=== PATIENT | female | born 1945 | race Caucasian/White ===

== ENCOUNTER 2016-11-16 17:11 | Emergency (ER) | payer BC, MEDICARE ==
[2016-11-16 19:15] LABS: BASO % 0.9 % (0-6); EOS % 2.3 % (0-6); GRAN % 59.8 % (47-80); HEMOGLOBIN 9.8 gm/dl (11.6-16.0); LYMPH % 26.5 % (16-45); MEAN CORPUSCULAR HGB CONC 32.7 g/dl (32-36); MEAN PLATELET VOLUME 10.7 fl (7.4-10.4); MONO % 10.5 % (0-9); PLATELET COUNT 248 K/uL (130-400); RED BLOOD COUNT 3.49 M/uL (3.80-5.40); RED CELL DISTRIBUTION WIDTH 13.1 % (11.5-14.5); WHITE BLOOD COUNT W/O DIFF 7.1 K/uL (4.2-12.2)
--- NOTE | 2016-11-16 19:19 | Emergency Department Record ---
History of Present Illness - General Chief complaint: Fatigue and Weakness Stated complaint: EDEMA Time Seen by Provider: 11/16/16 18:12 Source: Patient, Family Mode of Arrival: Wheelchair Limitations: No limitations - History of Present Illness Initial comments: pt has been excessively weak and sleepy lately. pt is recovering from a stroke several months ago and has been living with her sister. she went to rehab and is improving but is still walking with a walker. she has l sided deficits. she denies any significant chanes in her meds though her neurontin was recently increased from 100mg bid to tid. she denies pain, fever. MD Complaint: Generalized weakness Onset/Timin -: Days(s) Location: Generalized Severity: Mild Consistency: Constant Improves with: None Worsens with: None Associated Symptoms: Loss of appetite, Other - Jami Coma Scale Eye Response: (4) Open spontaneously Motor Response: (6) Obeys commands Verbal Response: (5) Oriented Jami Total: 15 - Symptoms of Stroke Onset of Symptoms Date: 11/13/16 Symptom Onset Unknown: Yes Symptoms of stroke: Muscle Weakness, Unable to Walk - Related Data Home Medications Medication Instructions Recorded Confirmed Last Taken Acetaminophen [Tylenol] 325 mg PO QD tab 11/09/16 11/16/16 11/16/16 Amlodipine Besylate [Norvasc] 2.5 mg PO QD tab 11/09/16 11/16/16 11/16/16 Atorvastatin Calcium [Lipitor] 80 mg PO QHS tab 11/09/16 11/16/16 11/16/16 Bumetanide 0.5 mg PO ASDIR #30 11/09/16 11/16/16 11/16/16 Cyanocobalamin (Vitamin B-12) 1,000 mcg PO QD tab 11/09/16 11/16/16 11/16/16 [Vitamin B12] Docusate Sodium [Colace] 100 mg PO QD cap 11/09/16 11/16/16 11/16/16 Gabapentin 100 mg PO TID #90 11/09/16 11/16/16 11/16/16 Glipizide [Glipizide Er] 10 mg PO DAILY #90 11/09/16 11/16/16 11/16/16 Glucosamine/D3/Boswellia Mehnaz 1 each PO TID tab 11/09/16 11/16/1617 [Glucosamine Complex Tablet] Ibuprofen [Motrin Ib] 200 mg PO QD tab 11/09/16 11/16/16 11/16/16 Insulin Glargine,Hum.rec.anlog 22 units SQ QAM #10 11/09/16 11/16/16 11/16/16 [Lantus] Menthol [Biofreeze] 89 ml TP ASDIR 11/09/16 11/16/16 11/16/16 Mirtazapine [Remeron] 15 mg PO QHS tab.rapdis 11/09/16 11/16/16 11/16/16 Multivitamin [Multi-Vitamin Daily] 1 each PO QD tab 11/09/16 11/16/16 11/16/16 Naproxen Sodium [Aleve] 220 mg PO ASDIR cap 11/09/16 11/16/16 11/16/16 Polyethylene Glycol 3350 [Miralax] 17 gm PO DAILY packet 11/09/16 11/16/16 Sennosides/Docusate Sodium 1 each PO QD tab 11/09/16 11/16/16 11/16/16 [Senna-Docusate Sodium Tablet] Ferrous Sulfate [Iron] 325 mg PO DAILY 11/16/16 11/16/16 11/16/16 Terazosin HCl 5 mg PO QHS 11/16/16 11/16/16 Unknown Allergies Allergy/AdvReac Type Severity Reaction Status Date / Time Penicillins Allergy Intermediate RASH Verified 11/16/16 17:53 Travel Screening - Travel/Exposure Within Last 30 Days Have you traveled within the last 30 days?: No Review of Systems Reviewed: No additional complaints except as noted below Constitutional: Reports: As per HPI, Weakness. Denies: Chills, Fever, Malaise, Night sweats, Weight change Eyes: Reports: As per HPI. Denies: Eye discharge, Eye pain, Photophobia, Vision change ENT: Reports: As per HPI. Denies: Congestion, Dental pain, Ear pain, Epistaxis , Hearing loss, Throat pain Respiratory: Reports: As per HPI. Denies: Cough, Dyspnea, Hemoptysis, Stridor, Wheezes Cardiovascular: Reports: As per HPI. Denies: Arrhythmia, Chest pain, Dyspnea on exertion, Edema, Murmurs, Orthopnea, Palpitations, Paroxysmal nocturnal dyspnea, Rheumatic Fever, Syncope Endocrine: Reports: As per HPI, Fatigue. Denies: Heat or cold intolerance, Polydipsia, Polyuria Gastrointestinal: Reports: As per HPI. Denies: Abdominal pain, Constipation, Diarrhea, Hematemesis, Hematochezia, Melena, Nausea, Vomiting Genitourinary: Reports: As per HPI. Denies: Abnormal menses, Discharge, Dyspareunia, Dysuria, Frequency, Hematuria, Incontinence, Retention, Urgency Musculoskeletal: Reports: As per HPI. Denies: Arthralgia, Back pain, Gout, Joint swelling, Myalgia, Neck pain Skin: Reports: As per HPI. Denies: Bruising, Change in color, Change in hair/ nails, Lesions, Pruritus, Rash Neurological: Reports: As per HPI, Weakness. Denies: Abnormal gait, Confusion, Headache, Numbness, Paresthesias, Seizure, Tingling, Tremors, Vertigo Psychiatric: Reports: As per HPI. Denies: Anxiety, Auditory hallucinations, Depression, Homicidal thoughts, Suicidal thoughts, Visual hallucinations Hematological/Lymphatic: Reports: As per HPI. Denies: Anemia, Blood Clots, Easy bleeding, Easy bruising, Swollen glands Past Medical History - SOCIAL HISTORY Smoking Status: Never smoker Alcohol Use: None Drug Use: None - RESPIRATORY Hx Respiratory Disorders: No - CARDIOVASCULAR Hx Cardio Disorders: Yes Hx Hypertension: Yes - NEURO Hx Neuro Disorders: Yes Hx CVA: Yes (April 2016) - GI Hx GI Disorders: No - Hx Genitourinary Disorders: No - ENDOCRINE Hx Endocrine Disorders: Yes Hx Diabetes: Yes - MUSCULOSKELETAL Hx Musculoskeletal Disorders: No - PSYCH Hx Psych Problems: No - HEMATOLOGY/ONCOLOGY Hx Hematology/Oncology Disorders: No Family Medical History Any Significant Family History?: Yes Hx Heart Disease: Father, Brother/Sister Course Vital Signs 11/16/16 17:43 Temperature 97.5 F L Pulse Rate 77 Respiratory 16 Rate Blood Pressure 164/71 Pulse Ox 97 - Reevaluation(s) Reevaluation #1: 11/16/16 20:[address] Medical Decision Making - Management Options MDM Management: Additional Work-up Planned (e.g. ADM/Transfer/OP Study) - Data Complexity MDM Data: Labs Ordered and/or Reviewed, X-Ray Ordered and/or Reviewed - Lab Data Result diagrams: 11/16/16 19:00 11/16/16 19:00 Disposition Disposition: Discharge Clinical Impression: Weakness Anemia Qualifiers: Anemia type: other cause Other causes of anemia: other cause, not classified Qualified Code(s): D64.89 - Other specified anemias Disposition: Home, Self-Care Condition: (1) Good Instructions: Fatigue (ED), Iron Rich Diet (ED), Iron Deficiency Anemia (ED), Anemia (ED) Additional Instructions: follow up with family doctor. return sooner if worse. push fluids. decrease neurontin. Forms: Patient Portal Access
[2016-11-16 19:35] LABS: INFLUENZA A NEGATIVE (NEGATIVE); INFLUENZA B NEGATIVE (NEGATIVE)
[2016-11-16 19:47] LABS: T3 UPTAKE 35.8 % (23.5-40.5)
[2016-11-16 19:57] LABS: ALB/GLOB RATIO 1.5 (1.1-1.8); ALBUMIN 3.9 gm/dL (3.5-5.0); ANION GAP 8.5 (7-16); BILIRUBIN,TOTAL 0.24 mg/dL (0.2-1.3); CARBON DIOXIDE 20.5 mmol/L (22-30); TOTAL PROTEIN 6.5 gm/dL (6.3-8.2)
[2016-11-16 20:14] LABS: THYROXINE (T4) 7.59 ug/dl (5.53-11.0)
[2016-11-16 20:28] LABS: THYROID STIMULATING HORMONE 1.71 uIU/ml (0.465-4.68)
[2016-11-16 20:37] LABS: URINE APPEARANCE CLEAR; URINE BILIRUBIN NEGATIVE (NEGATIVE); URINE BLOOD NEGATIVE (NEGATIVE); URINE COLOR YELLOW; URINE GLUCOSE (UA) NEGATIVE (NEGATIVE); URINE KETONE NEGATIVE (NEGATIVE); URINE LEUKOCYTE ESTERASE NEGATIVE (NEGATIVE); URINE NITRITE NEGATIVE (NEGATIVE); URINE PROTEIN NEGATIVE (NEGATIVE); URINE UROBILINOGEN 0.2 E.U./dL (0.20 - 1.00)
--- NOTE | 2016-11-19 03:52 | Emergency Department Record ---
History of Present Illness - General Chief complaint: Fatigue and Weakness Stated complaint: EDEMA Time Seen by Provider: 11/16/16 18:12 Source: Patient, Family Mode of Arrival: Wheelchair Limitations: No limitations - History of Present Illness Complaint: Generalized weakness Onset/Timin -: Days(s) Location: Generalized Severity: Mild Consistency: Constant Improves with: None Worsens with: None Associated Symptoms: Loss of appetite, Other - Jami Coma Scale Eye Response: (4) Open spontaneously Motor Response: (6) Obeys commands Verbal Response: (5) Oriented Jami Total: 15 - Symptoms of Stroke Onset of Symptoms Date: 11/13/16 Symptom Onset Unknown: Yes Symptoms of stroke: Muscle Weakness, Unable to Walk - Related Data Home Medications Medication Instructions Recorded Confirmed Last Taken Acetaminophen [Tylenol] 325 mg PO QD tab 11/09/16 11/16/16 11/16/16 Amlodipine Besylate [Norvasc] 2.5 mg PO QD tab 11/09/16 11/16/16 11/16/16 Atorvastatin Calcium [Lipitor] 80 mg PO QHS tab 11/09/16 11/16/16 11/16/16 Bumetanide 0.5 mg PO ASDIR #30 11/09/16 11/16/16 11/16/16 Cyanocobalamin (Vitamin B-12) 1,000 mcg PO QD tab 11/09/16 11/16/16 11/16/16 [Vitamin B12] Docusate Sodium [Colace] 100 mg PO QD cap 11/09/16 11/16/16 11/16/16 Gabapentin 100 mg PO TID #90 11/09/16 11/16/16 11/16/16 Glipizide [Glipizide Er] 10 mg PO DAILY #90 11/09/16 11/16/16 11/16/16 Glucosamine/D3/Boswellia Mehnaz 1 each PO TID tab 11/09/16 11/16/16 11/16/16 [Glucosamine Complex Tablet] Ibuprofen [Motrin Ib] 200 mg PO QD tab 11/09/16 11/16/16 11/16/16 Insulin Glargine,Hum.rec.anlog 22 units SQ QAM #10 11/09/16 11/16/16 11/16/16 [Lantus] Menthol [Biofreeze] 89 ml TP ASDIR 11/09/16 11/16/16 11/16/16 Mirtazapine [Remeron] 15 mg PO QHS tab.rapdis 11/09/16 11/16/16 11/16/16 Multivitamin [Multi-Vitamin Daily] 1 each PO QD tab 11/09/16 11/16/16 11/16/16 Naproxen Sodium [Aleve] 220 mg PO ASDIR cap 11/09/16 11/16/16 11/16/16 Polyethylene Glycol 3350 [Miralax] 17 gm PO DAILY packet 11/09/16 11/16/16 Sennosides/Docusate Sodium 1 each PO QD tab 11/09/16 11/16/16 11/16/16 [Senna-Docusate Sodium Tablet] Ferrous Sulfate [Iron] 325 mg PO DAILY 11/16/16 11/16/16 11/16/16 Terazosin HCl 5 mg PO QHS 11/16/16 11/16/16 Unknown Allergies Allergy/AdvReac Type Severity Reaction Status Date / Time Penicillins Allergy Intermediate RASH Verified 11/16/16 17:53 Travel Screening - Travel/Exposure Within Last 30 Days Have you traveled within the last 30 days?: No Review of Systems Constitutional: Reports: As per HPI, Weakness. Denies: Chills, Fever, Malaise, Night sweats, Weight change Eyes: Reports: As per HPI. Denies: Eye discharge, Eye pain, Photophobia, Vision change ENT: Reports: As per HPI. Denies: Congestion, Dental pain, Ear pain, Epistaxis , Hearing loss, Throat pain Respiratory: Reports: As per HPI. Denies: Cough, Dyspnea, Hemoptysis, Stridor, Wheezes Cardiovascular: Reports: As per HPI. Denies: Arrhythmia, Chest pain, Dyspnea on exertion, Edema, Murmurs, Orthopnea, Palpitations, Paroxysmal nocturnal dyspnea, Rheumatic Fever, Syncope Endocrine: Reports: As per HPI, Fatigue. Denies: Heat or cold intolerance, Polydipsia, Polyuria Gastrointestinal: Reports: As per HPI. Denies: Abdominal pain, Constipation, Diarrhea, Hematemesis, Hematochezia, Melena, Nausea, Vomiting Genitourinary: Reports: As per HPI. Denies: Abnormal menses, Discharge, Dyspareunia, Dysuria, Frequency, Hematuria, Incontinence, Retention, Urgency Musculoskeletal: Reports: As per HPI. Denies: Arthralgia, Back pain, Gout, Joint swelling, Myalgia, Neck pain Skin: Reports: As per HPI. Denies: Bruising, Change in color, Change in hair/ nails, Lesions, Pruritus, Rash Neurological: Reports: As per HPI, Weakness. Denies: Abnormal gait, Confusion, Headache, Numbness, Paresthesias, Seizure, Tingling, Tremors, Vertigo Psychiatric: Reports: As per HPI. Denies: Anxiety, Auditory hallucinations, Depression, Homicidal thoughts, Suicidal thoughts, Visual hallucinations Hematological/Lymphatic: Reports: As per HPI. Denies: Anemia, Blood Clots, Easy bleeding, Easy bruising, Swollen glands Past Medical History - SOCIAL HISTORY Smoking Status: Never smoker Alcohol Use: None Drug Use: None - RESPIRATORY Hx Respiratory Disorders: No - CARDIOVASCULAR Hx Cardio Disorders: Yes Hx Hypertension: Yes - NEURO Hx Neuro Disorders: Yes Hx CVA: Yes (April 2016) - GI Hx GI Disorders: No - Hx Genitourinary Disorders: No - ENDOCRINE Hx Endocrine Disorders: Yes Hx Diabetes: Yes - MUSCULOSKELETAL Hx Musculoskeletal Disorders: No - PSYCH Hx Psych Problems: No - HEMATOLOGY/ONCOLOGY Hx Hematology/Oncology Disorders: No Family Medical History Any Significant Family History?: Yes Hx Heart Disease: Father, Brother/Sister Physical Exam - General General Appearance: Alert, Oriented x3, Cooperative, Mild distress Limitations: No limitations - Head Head exam: Normal inspection - Eye Eye exam: Normal appearance, PERRL, EOMI Pupils: Normal accommodation - ENT ENT exam: Normal exam, Mucous membranes moist, Normal external ear exam, Normal orophraynx Ear exam: Normal external inspection. negative: External canal tenderness Nasal Exam: Normal inspection. negative: Discharge, Sinus tenderness Mouth exam: Normal external inspection, Tongue normal Teeth exam: Normal inspection. negative: Dental caries Throat exam: Normal inspection. negative: Tonsillar erythema, Tonsillar exudate - Neck Neck exam: Normal inspection, Full ROM. negative: Tenderness - Respiratory Respiratory exam: Normal lung sounds bilaterally. negative: Respiratory distress - Cardiovascular Cardiovascular Exam: Regular rate, Normal rhythm, Normal heart sounds - GI/Abdominal GI/Abdominal exam: Soft, Normal bowel sounds. negative: Tenderness - Rectal Rectal exam: Deferred - exam: Deferred - Extremities Extremities exam: Normal inspection, Full ROM, Normal capillary refill. negative: Tenderness - Back Back exam: Reports: Normal inspection, Full ROM. Denies: Muscle spasm, Rash noted, Tenderness - Neurological Neurological exam: Alert, CN II-XII intact, Normal gait, Oriented X3 - Psychiatric Psychiatric exam: Normal affect, Normal mood - Skin Skin exam: Dry, Intact, Normal color, Warm Course Vital Signs 11/16/16 11/16/16 17:43 21:09 Temperature 97.5 F L Pulse Rate 77 71 Respiratory 16 18 Rate Blood Pressure 164/71 158/71 Pulse Ox 97 97 Medical Decision Making - Lab Data Result diagrams: 11/16/16 19:00 11/16/16 19:00 Lab Results 11/16/16 11/16/16 11/16/16 Range/Units 19:00 19:00 19:00 WBC 7.1 (4.2-12.2) K/uL RBC 3.49 L (3.80-5.40) M/uL Hgb 9.8 L (11.6-16.0) gm/dl Hct 30.0 L (35.0-47.0) % MCV 86.0 (81-97) fl MCH 28.0 (27-33) pg MCHC 32.7 (32-36) g/dl RDW 13.1 (11.5-14.5) % Plt Count 248 (130-400) K/uL MPV 10.7 H (7.4-10.4) fl Gran % 59.8 (47-80) % Lymphocytes % 26.5 (16-45) % Monocytes % 10.5 H (0-9) % Eosinophils % 2.3 (0-6) % Basophils % 0.9 (0-6) % Sodium 135 L (136-145) mmol/L Potassium 4.8 (3.5-5.1) mmol/L Chloride 106 (98-107) mmol/L Carbon Dioxide 20.5 L (22-30) mmol/L Anion Gap 8.5 (7-16) BUN 28 H (7-17) mg/dL Creatinine 1.0 (0.52-1.04) mg/dL Estimated GFR 58 ml/min Random Glucose 74 (70-110) mg/dL Lactic Acid 0.8 (0.7-2.1) mmol/L Calcium 10.0 (8.5-10.1) mg/dL Total Bilirubin 0.24 (0.2-1.3) mg/dL AST 21 (14-36) U/L ALT 31 (9-52) U/L Alkaline Phosphatase 70 (38-126) U/L Total Protein 6.5 (6.3-8.2) gm/dL Albumin 3.9 (3.5-5.0) gm/dL Globulin 2.6 (1.4-4.8) gm/dL Albumin/Globulin Ratio 1.5 (1.1-1.8) TSH 1.71 (0.465-4.68) uIU/ml Thyroxine (T4) 7.59 (5.53-11.0) ug/dl T3 Uptake 35.80 (23.5-40.5) % Urine Color Urine Appearance Urine pH (5.0-8.0) Ur Specific Brewster (1.002-1.030) Urine Protein (NEGATIVE) Urine Glucose (UA) (NEGATIVE) Urine Ketones (NEGATIVE) Urine Blood (NEGATIVE) Urine Nitrite (NEGATIVE) Urine Bilirubin (NEGATIVE) Urine Urobilinogen (0.20 - 1.00) E.U./dL Ur Leukocyte Esterase (NEGATIVE) Influenza Type A Ag (NEGATIVE) Influenza Type B Ag (NEGATIVE) 11/16/16 11/16/16 Range/Units 19:07 20:46 WBC (4.2-12.2) K/uL RBC (3.80-5.40) M/uL Hgb (11.6-16.0) gm/dl Hct (35.0-47.0) % MCV (81-97) fl MCH (27-33) pg MCHC (32-36) g/dl RDW (11.5-14.5) % Plt Count (130-400) K/uL MPV (7.4-10.4) fl Gran % (47-80) % Lymphocytes % (16-45) % Monocytes % (0-9) % Eosinophils % (0-6) % Basophils % (0-6) % Sodium (136-145) mmol/L Potassium (3.5-5.1) mmol/L Chloride (98-107) mmol/L Carbon Dioxide (22-30) mmol/L Anion Gap (7-16) BUN (7-17) mg/dL Creatinine (0.52-1.04) mg/dL Estimated GFR ml/min Random Glucose (70-110) mg/dL Lactic Acid (0.7-2.1) mmol/L Calcium (8.5-10.1) mg/dL Total Bilirubin (0.2-1.3) mg/dL AST (14-36) U/L ALT (9-52) U/L Alkaline Phosphatase (38-126) U/L Total Protein (6.3-8.2) gm/dL Albumin (3.5-5.0) gm/dL Globulin (1.4-4.8) gm/dL Albumin/Globulin Ratio (1.1-1.8) TSH (0.465-4.68) uIU/ml Thyroxine (T4) (5.53-11.0) ug/dl T3 Uptake (23.5-40.5) % Urine Color Yellow Urine Appearance Clear Urine pH 5.5 (5.0-8.0) Ur Specific Brewster 1.020 (1.002-1.030) Urine Protein Negative (NEGATIVE) Urine Glucose (UA) Negative (NEGATIVE) Urine Ketones Negative (NEGATIVE) Urine Blood Negative (NEGATIVE) Urine Nitrite Negative (NEGATIVE) Urine Bilirubin Negative (NEGATIVE) Urine Urobilinogen 0.2 (0.20 - 1.00) E.U./dL Ur Leukocyte Esterase Negative (NEGATIVE) Influenza Type A Ag Negative (NEGATIVE) Influenza Type B Ag Negative (NEGATIVE) Disposition Clinical Impression: Weakness Anemia Qualifiers: Anemia type: other cause Other causes of anemia: other cause, not classified Qualified Code(s): D64.89 - Other specified anemias Disposition: Home, Self-Care Condition: (1) Good Instructions: Iron Rich Diet (ED), Iron Deficiency Anemia (ED), Fatigue (ED), Anemia (ED) Additional Instructions: follow up with family doctor. return sooner if worse. push fluids. decrease neurontin. Forms: Patient Portal Access
== END 2016-11-16 21:12 | disposition home or self-care (01) ==
LOC: ER 17:11
DX: R53.1 Weakness (principal); D64.89 Other specified anemias; R53.83 Other fatigue; R26.2 Difficulty in walking, not elsewhere classified; E11.9 Type 2 diabetes mellitus without complications; R60.0 Localized edema; Z79.4 Long term (current) use of insulin; I69.359 Hemiplegia and hemiparesis following cerebral infarction affecting unspecified side; I10 Essential (primary) hypertension
CPT/HCPCS: 71020; 80053; 81003; 83605; 84436; 84443; 84479; 85025; 87400; 99283; 99284

== ENCOUNTER 2017-08-26 17:49 | Emergency (ER) | payer MEDICARE ==
[2017-08-26] MEDS ORDERED: ONDANSETRON HCL IV 4 MG/2 ML VIAL IV ONE (18:16)
[2017-08-26] MEDS ORDERED: 0.9 % SODIUM CHLORIDE 1,000 ML BAG IV ONE (18:16)
--- NOTE | 2017-08-26 18:25 | Emergency Department Record ---
History of Present Illness - General Chief Complaint: Abdominal Pain Stated Complaint: CONSTIPATED,VOMITING Time Seen by Provider: 08/26/17 18:09 Source: Patient, Family Mode of Arrival: Ambulatory Limitations: No limitations - History of Present Illness Initial Comments: The patient is here due to vague AP with nausea, and intermittent vomiting for 2 weeks. She states she has vomited once a day for about 2 weeks. She also has a hx of chronic constipation and has felt more constipated recently but she has had some small stools today. Additionally she has been very weak and fatigued recently. The patient was in the 2 days ago and had an AXR that did show constipation with possible air fluid levels. She also was treated for a toe infection but that is much improved and she is taking Clindamycin. The patient has had a previous CVA with residual mild L sided weakness. She does not walk and gets around the house in a wheelchair. MD Complaint: Abdominal pain Onset/Timin -: Week(s) Radiation: None Improves With: Nothing Worsens With: Nothing Associated Symptoms: Constipation - Related Data Home Medications Medication Instructions Recorded Confirmed Last Taken Erythromycin Base [Erythromycin] 500 mg PO Q6H 08/26/17 08/26/17 08/26/17 Allergies Allergy/AdvReac Type Severity Reaction Status Date / Time Penicillins Allergy Intermediate RASH Verified 08/26/17 17:56 Travel Screening - Travel/Exposure Within Last 30 Days Have you traveled within the last 30 days?: No - Travel/Exposure Within Last Year Have you traveled outside the [place] in the last year?: No - Additonal Travel Details Have you been exposed to anyone with a communicable illness?: No - Travel Symptoms Symptom Screening: None Review of Systems Constitutional: Denies: Chills, Fever Eyes: Denies: Eye discharge ENT: Denies: Congestion, Throat pain Respiratory: Denies: Cough, Dyspnea Cardiovascular: Denies: Chest pain Endocrine: Reports: Fatigue Gastrointestinal: Reports: Abdominal pain, Nausea, Vomiting. Denies: Diarrhea, Melena Genitourinary: Denies: Dysuria Musculoskeletal: Denies: Arthralgia Past Medical History - SOCIAL HISTORY Smoking Status: Never smoker Alcohol Use: None Drug Use: None - RESPIRATORY Hx Respiratory Disorders: No - CARDIOVASCULAR Hx Cardio Disorders: Yes Hx Hypertension: Yes - NEURO Hx Neuro Disorders: Yes Hx CVA: Yes (April 2016) - GI Hx GI Disorders: No - Hx Genitourinary Disorders: No - ENDOCRINE Hx Endocrine Disorders: Yes Hx Diabetes: Yes - MUSCULOSKELETAL Hx Musculoskeletal Disorders: No - PSYCH Hx Psych Problems: No - HEMATOLOGY/ONCOLOGY Hx Hematology/Oncology Disorders: No Family Medical History Any Significant Family History?: Yes Hx Heart Disease: Father, Brother/Sister Physical Exam - General General Appearance: Alert, Cooperative, No acute distress - Head Head exam: Atraumatic, Normocephalic - Eye Eye exam: Normal appearance, PERRL Pupils: Normal accommodation - ENT Throat exam: Normal inspection. negative: Tonsillar erythema, Tonsillar exudate - Neck Neck exam: Normal inspection, Full ROM. negative: Tenderness - Respiratory Respiratory exam: Normal lung sounds bilaterally. negative: Respiratory distress - Cardiovascular Cardiovascular Exam: Regular rate, Normal rhythm, Normal heart sounds - GI/Abdominal GI/Abdominal exam: Soft, Normal bowel sounds, Tenderness (There is some very vague mild lower abdominal tenderness.). negative: Rebound, Rigid - Extremities Extremities exam: Normal inspection, Normal capillary refill. negative: Tenderness - Neurological Neurological exam: Abnormal gait (chronic.), Alert. negative: Normal gait - Psychiatric Psychiatric exam: Flat affect - Skin Skin exam: negative: Rash Course Vital Signs 08/26/17 18:02 Temperature 98.3 F Pulse Rate 86 Respiratory 16 Rate Blood Pressure 156/71 Pulse Ox 95 - Reevaluation(s) Reevaluation #1: The patient is doing well at this time. We are waiting on her lab and CT results. Due to shift change the patient's care will be turned over to Dr. Petersen. 08/26/17 18:56 Medical Decision Making - Lab Data Result diagrams: 08/26/17 18:40 08/26/17 18:40 Disposition Forms: Patient Portal Access Quality - Quality Measures Quality Measures: N/A - Blood Pressure Screening View Details: Yes Does Patient Have Any of the Following: No Blood Pressure Classification: Hypertensive Reading Systolic Measurement: 156 Diastolic Measurement: 71 Screening for High Blood Pressure: < Pre-Hypertensive BP, F/U Documented > [ [id number]] Pre-Hypertensive Follow-up Interventions: Referral to alternative/primary care provider.
[2017-08-26 18:36] LABS: URINE APPEARANCE CLEAR; URINE BILIRUBIN NEGATIVE (NEGATIVE); URINE BLOOD NEGATIVE (NEGATIVE); URINE COLOR YELLOW; URINE GLUCOSE (UA) NEGATIVE (NEGATIVE); URINE KETONE NEGATIVE (NEGATIVE); URINE LEUKOCYTE ESTERASE NEGATIVE (NEGATIVE); URINE NITRITE NEGATIVE (NEGATIVE); URINE PROTEIN NEGATIVE (NEGATIVE); URINE UROBILINOGEN 0.2 E.U./dL (0.20 - 1.00)
[2017-08-26 18:54] LABS: BASO % 0.2 % (0-6); EOS % 0.5 % (0-6); GRAN % 73.9 % (47-80); HEMATOCRIT 34.2 % (35.0-47.0); HEMOGLOBIN 10.9 gm/dl (11.6-16.0); LYMPH % 16.9 % (16-45); MEAN CELL VOLUME 86.4 fl (81-97); MEAN CORPUSCULAR HEMOGLOBIN 27.5 pg (27-33); MEAN CORPUSCULAR HGB CONC 31.9 g/dl (32-36); MEAN PLATELET VOLUME 10.2 fl (7.4-10.4); MONO % 8.5 % (0-9); PLATELET COUNT 312 K/uL (130-400); RED BLOOD COUNT 3.96 M/uL (3.80-5.40); RED CELL DISTRIBUTION WIDTH 13.1 % (11.5-14.5); WHITE BLOOD COUNT W/O DIFF 11.4 K/uL (4.2-12.2)
[2017-08-26 18:59] LABS: BLOOD UREA NITROGEN 34 mg/dL (8-23)
[2017-08-26 19:00] LABS: CREATININE 1.4 mg/dL (0.5-0.9); EST GLOMERULAR FILTRATION RATE 40 mL/min; TOTAL PROTEIN 7.5 g/dL (6.6-8.7)
[2017-08-26 19:02] LABS: GLUCOSE,RANDOM 169 mg/dL (74-109)
[2017-08-26 19:05] LABS: ALBUMIN 4.8 g/dL (4.0-5.0); ALKALINE PHOSPHATASE 80 U/L (35-104); ALT/SGPT 17 U/L (<33); AST/SGOT 15 U/L (10.0-35.0); LIPASE 25 U/L (13-60)
[2017-08-26 19:10] LABS: BILIRUBIN,DIRECT < 0.2 mg/dL (0-0.3)
--- NOTE | 2017-08-26 19:31 | Emergency Department Record ---
History of Present Illness - General Chief Complaint: Abdominal Pain Stated Complaint: CONSTIPATED,VOMITING Time Seen by Provider: 08/26/17 18:09 Source: Patient, Family Mode of Arrival: Ambulatory Limitations: No limitations - History of Present Illness MD Complaint: Abdominal pain Onset/Timin -: Week(s) Radiation: None Improves With: Nothing Worsens With: Nothing Associated Symptoms: Constipation - Related Data Home Medications Medication Instructions Recorded Confirmed Last Taken Erythromycin Base [Erythromycin] 500 mg PO Q6H 08/26/17 08/26/17 08/26/17 Previous Rx's Medication Instructions Recorded Magnesium Citrate 295 ml PO DAILY PRN #10 solution 08/26/17 Allergies Allergy/AdvReac Type Severity Reaction Status Date / Time Penicillins Allergy Intermediate RASH Verified 08/26/17 17:56 Travel Screening - Travel/Exposure Within Last 30 Days Have you traveled within the last 30 days?: No - Travel/Exposure Within Last Year Have you traveled outside the [place] in the last year?: No - Additonal Travel Details Have you been exposed to anyone with a communicable illness?: No - Travel Symptoms Symptom Screening: None Review of Systems Constitutional: Denies: Chills, Fever Eyes: Denies: Eye discharge ENT: Denies: Congestion, Throat pain Respiratory: Denies: Cough, Dyspnea Cardiovascular: Denies: Chest pain Endocrine: Reports: Fatigue Gastrointestinal: Reports: Abdominal pain, Nausea, Vomiting. Denies: Diarrhea, Melena Genitourinary: Denies: Dysuria Musculoskeletal: Denies: Arthralgia Past Medical History - SOCIAL HISTORY Smoking Status: Never smoker Alcohol Use: None Drug Use: None - RESPIRATORY Hx Respiratory Disorders: No - CARDIOVASCULAR Hx Cardio Disorders: Yes Hx Hypertension: Yes - NEURO Hx Neuro Disorders: Yes Hx CVA: Yes (April 2016) - GI Hx GI Disorders: No - Hx Genitourinary Disorders: No - ENDOCRINE Hx Endocrine Disorders: Yes Hx Diabetes: Yes - MUSCULOSKELETAL Hx Musculoskeletal Disorders: No - PSYCH Hx Psych Problems: No - HEMATOLOGY/ONCOLOGY Hx Hematology/Oncology Disorders: No Family Medical History Any Significant Family History?: Yes Hx Heart Disease: Father, Brother/Sister Physical Exam - General Limitations: No limitations Course Vital Signs 08/26/17 18:02 Temperature 98.3 F Pulse Rate 86 Respiratory 16 Rate Blood Pressure 156/71 Pulse Ox 95 - Reevaluation(s) Reevaluation #1: 08/26/17 19:30 Labs reviewed and are grossly unremarkable for an acute process. Patient is going for CT imaging (oral contrast only) at this time. Reevaluation #2: 08/26/17 20:08 CT Abdomen and Pelvis: Small pericardial effusion Sliding-type hiatal hernia Moderate constipation throughout the colon Patient was updated on all results, will discharge home on Magnesium Citrate as directed for her constipation symptoms. Medical Decision Making - Lab Data Result diagrams: 08/26/17 18:40 08/26/17 18:40 Lab Results 08/26/17 08/26/17 08/26/17 Range/Units 18:30 18:40 18:40 WBC 11.4 (4.2-12.2) K/uL RBC 3.96 (3.80-5.40) M/uL Hgb 10.9 L (11.6-16.0) gm/dl Hct 34.2 L (35.0-47.0) % MCV 86.4 (81-97) fl MCH 27.5 (27-33) pg MCHC 31.9 L (32-36) g/dl RDW 13.1 (11.5-14.5) % Plt Count 312 (130-400) K/uL MPV 10.2 (7.4-10.4) fl Gran % 73.9 (47-80) % Lymphocytes % 16.9 (16-45) % Monocytes % 8.5 (0-9) % Eosinophils % 0.5 (0-6) % Basophils % 0.2 (0-6) % Sodium 137 (136-145) mmol/L Potassium 4.4 (3.4-4.5) mmol/L Chloride 98 (98-107) mmol/L Carbon Dioxide 23.0 (22-29) mmol/L Anion Gap 16.0 (7-16) BUN 34 H (8-23) mg/dL Creatinine 1.4 H (0.5-0.9) mg/dL Estimated GFR 40 mL/min Random Glucose 169 H (74-109) mg/dL Calcium 11.3 H (8.8-10.2) mg/dL Total Bilirubin 0.50 (0.2-1.0) mg/dL Direct Bilirubin < 0.2 (0-0.3) mg/dL AST 15 (10.0-35.0) U/L ALT 17 (<33) U/L Alkaline Phosphatase 80 (35-104) U/L Total Protein 7.5 (6.6-8.7) g/dL Albumin 4.8 (4.0-5.0) g/dL Lipase 25 (13-60) U/L TSH (0.270-4.20) uIU/mL Urine Color Yellow Urine Appearance Clear Urine pH 5.0 (5.0-8.0) Ur Specific [place] >= 1.030 (1.002-1.030) Urine Protein Negative (NEGATIVE) Urine Glucose (UA) Negative (NEGATIVE) Urine Ketones Negative (NEGATIVE) Urine Blood Negative (NEGATIVE) Urine Nitrite Negative (NEGATIVE) Urine Bilirubin Negative (NEGATIVE) Urine Urobilinogen 0.2 (0.20 - 1.00) E.U./dL Ur Leukocyte Esterase Negative (NEGATIVE) 08/26/17 Range/Units 18:40 WBC (4.2-12.2) K/uL RBC (3.80-5.40) M/uL Hgb (11.6-16.0) gm/dl Hct (35.0-47.0) % MCV (81-97) fl MCH (27-33) pg MCHC (32-36) g/dl RDW (11.5-14.5) % Plt Count (130-400) K/uL MPV (7.4-10.4) fl Gran % (47-80) % Lymphocytes % (16-45) % Monocytes % (0-9) % Eosinophils % (0-6) % Basophils % (0-6) % Sodium (136-145) mmol/L Potassium (3.4-4.5) mmol/L Chloride (98-107) mmol/L Carbon Dioxide (22-29) mmol/L Anion Gap (7-16) BUN (8-23) mg/dL Creatinine (0.5-0.9) mg/dL Estimated GFR mL/min Random Glucose (74-109) mg/dL Calcium (8.8-10.2) mg/dL Total Bilirubin (0.2-1.0) mg/dL Direct Bilirubin (0-0.3) mg/dL AST (10.0-35.0) U/L ALT (<33) U/L Alkaline Phosphatase (35-104) U/L Total Protein (6.6-8.7) g/dL Albumin (4.0-5.0) g/dL Lipase (13-60) U/L TSH 1.49 (0.270-4.20) uIU/mL Urine Color Urine Appearance Urine pH (5.0-8.0) Ur Specific [place] (1.002-1.030) Urine Protein (NEGATIVE) Urine Glucose (UA) (NEGATIVE) Urine Ketones (NEGATIVE) Urine Blood (NEGATIVE) Urine Nitrite (NEGATIVE) Urine Bilirubin (NEGATIVE) Urine Urobilinogen (0.20 - 1.00) E.U./dL Ur Leukocyte Esterase (NEGATIVE) Disposition Disposition: Discharge Clinical Impression: Constipation Qualifiers: Constipation type: unspecified constipation type Qualified Code(s): K59.00 - Constipation, unspecified Disposition: Home, Self-Care Condition: (2) Stable Instructions: Constipation (ED) Additional Instructions: Return to ED if your symptoms worsen or if you have any concerns. Magnesium Citrate as directed. Follow-up with your family doctor in 3-5 days as directed. Prescriptions: Magnesium Citrate 295 ml PO DAILY PRN #10 solution PRN Reason: Constipation Forms: Patient Portal Access Time of Disposition: 20:11 Quality - Quality Measures Quality Measures: N/A - Blood Pressure Screening Does Patient Have Any of the Following: No Blood Pressure Classification: Hypertensive Reading Systolic Measurement: 156 Diastolic Measurement: 71 Screening for High Blood Pressure: < First Hypertensive BP, F/U Documented > [ [id number]] First Hypertensive Follow-up Interventions: Referral to alternative/primary care provider.
--- NOTE | 2017-08-27 13:17 | CT SCAN REPORT ---
EXAM: CT OF THE ABDOMEN AND PELVIS WITHOUT CONTRAST HISTORY: CHRONIC CONSTIPATION. TECHNIQUE: CT of the abdomen and pelvis was performed without contrast. FINDINGS: The visualized lung bases appear normal. There is a moderate sliding type hiatal hernia. There is a small pericardial effusion. The gallbladder has been surgically removed. No gross abnormalities within the liver. The pancreas and spleen appear normal. The adrenal glands and kidneys appear normal. The small bowel appears normal. The urinary bladder appears normal. There is a large amount of stool throughout the entire colon and rectum. No evidence of obstruction. There is osteopenia. There is a Grade 1 anterolisthesis of L4 in respect to L5. IMPRESSION: 1. THERE IS A LARGE AMOUNT OF STOOL THROUGHOUT THE ENTIRE COLON AND RECTUM CONSISTENT WITH SEVERE CONSTIPATION. 2. SMALL PERICARDIAL EFFUSION. 3. MODERATE SLIDING TYPE HIATAL HERNIA. JOB NUMBER: [id number] [facility]
== END 2017-08-26 20:39 | disposition home or self-care (01) ==
LOC: ER 17:49
DX: K59.00 Constipation, unspecified (principal); R11.2 Nausea with vomiting, unspecified; R10.9 Unspecified abdominal pain; I10 Essential (primary) hypertension; I69.954 Hemiplegia and hemiparesis following unspecified cerebrovascular disease affecting left non-dominant side
CPT/HCPCS: 99284 ×2; 96374; 96361; 83690; 85025; 80076; 80048; 81003; 84443; 74176; J2405; J7030